=== PATIENT | male | born 1955 | race Caucasian/White ===

== ENCOUNTER 2019-07-23 15:09 | Emergency (ER) | payer BC, OTHER ==
[~2019-07-23] VITALS: Ht 182.9 cm; Wt 97.5 kg
[2019-07-23 15:50] LABS: ABSOLUTE NEUTROPHILS 9.5 thou/uL (1.4-8.2); BASOPHILS 1.3 % (0.0-2.0); EOSINOPHILS 0.2 % (0.0-3.0); HEMATOCRIT 51.5 % (42.0-52.0); HEMOGLOBIN 17.4 gm/dL (14.0-18.0); MCH 31.6 pg (26.0-34.0); MCHC 33.9 g/dL (28.0-37.0); MCV 93.4 fL (80.0-100.0); MONOCYTES 3.9 % (1.0-8.0); PLATELET COUNT 267 thou/uL (150-400); POLYS 81.6 % (36.0-66.0); RBC 5.51 mil/uL (4.50-6.00); RDW 13.4 % (10.5-14.5); WBC 11.7 thou/uL (4.0-11.0)
[2019-07-23 15:56] LABS: CALCIUM 9.5 mg/dL (8.5-10.1); POTASSIUM 4.4 mmol/L (3.5-5.1)
[2019-07-23 16:02] LABS: ALBUMIN 4.2 g/dL (3.4-5.0); TOTAL BILIRUBIN 0.7 mg/dL (<0.1-1.0); TOTAL PROTEIN 8.6 g/dL (6.4-8.2)
--- NOTE | 2019-07-23 16:27 | EKG ---
[place] [address] [employer] [place] [address] ELECTROCARDIOGRAM REPORT Name: PARTHA SANTOS Room #: REG RONIT Mariee#: [id number] Admission: 07/23/19 Attend Phys: Discharge: Date of : 59 Report #: [id number] THIS REPORT FOR: //name// [facility] ED Test Date: 2019-07-23 Test Time: 15:51:48 Pat Name: PARTHA SANTOS Department: Room: Gender: Repossession Agent: [place] : 1955 Requested By: Arcenio Day Order Number: [id number] MD: Dewayne Bowie Measurements Intervals [place] Rate: 78 P: 54 VA: 193 QRS: -27 QRSD: 89 T: 61 QT: 400 QTc: 456 Interpretive Statements Sinus rhythm Inferior infarct, old Probable anterolateral infarct, age indeterm No previous ECG available for comparison Electronically Signed On 07-23-2019 16:26:17 BRANCH ACCOUNT EXECUTIVE by Dewayne Bowie [email or web address] <ELECTRONICALLY SIGNED> By: Dewayne Bowie MD, [facility] 07/23/19 1626 1551 1551 Dewayne Bowie MD, FACC /EPI
[2019-07-23] MEDS ORDERED: NORCO 5-325 TA1 EAC1 PO (16:50)
[2019-07-23 17:22] VITALS: BP 123/87
== END 2019-07-23 17:22 | disposition home or self-care (01) ==
LOC: ER 15:09
PROVIDERS: Emergency Medicine
DX: S76.112A Strain of left quadriceps muscle, fascia and tendon, initial encounter (principal); W00.0XXA Fall on same level due to ice and snow, initial encounter; Y92.89 Other specified places as the place of occurrence of the external cause; Y93.89 Activity, other specified; Y99.8 Other external cause status

== ENCOUNTER 2020-02-26 11:41 | Inpatient (IN) | payer BC, OTHER ==
[~2020-02-26] VITALS: Ht 182.9 cm; Wt 117.9 kg
[~2020-02-26 11:41] MED LIST: NORCO 5-325 TA1 EAC1 PO
[2020-02-26 11:45] VITALS: BP 164/94
[2020-02-26 12:32] LABS: CREATININE 1.1 mg/dL (0.7-1.3); POTASSIUM 4.2 mmol/L (3.5-5.1)
[2020-02-26 12:36] LABS: ABSOLUTE NEUTROPHILS 6.1 thou/uL (1.4-8.2); BASOPHILS 1.3 % (0.0-2.0); EOSINOPHILS 1.9 % (0.0-3.0); HEMATOCRIT 49.9 % (42.0-52.0); HEMOGLOBIN 17.2 gm/dL (14.0-18.0); LYMPHOCYTES 20.7 % (24.0-44.0); MCH 32.4 pg (26.0-34.0); MCHC 34.5 g/dL (28.0-37.0); MCV 93.9 fL (80.0-100.0); PLATELET COUNT 201 thou/uL (150-400); POLYS 70.1 % (36.0-66.0); RBC 5.31 mil/uL (4.50-6.00); RDW 13.3 % (10.5-14.5); WBC 8.7 thou/uL (4.0-11.0)
[2020-02-26 12:38] LABS: ALBUMIN 3.7 g/dL (3.4-5.0); TOTAL BILIRUBIN 0.7 mg/dL (0.2-1.0); TOTAL PROTEIN 7.8 g/dL (6.4-8.2)
[2020-02-26 14:56] LABS: HEMATOCRIT 48.1 % (42.0-52.0); HEMOGLOBIN 16.6 gm/dL (14.0-18.0); MCH 32.3 pg (26.0-34.0); MCHC 34.4 g/dL (28.0-37.0); MCV 93.9 fL (80.0-100.0); RBC 5.13 mil/uL (4.50-6.00); RDW 13.5 % (10.5-14.5); WBC 9.1 thou/uL (4.0-11.0)
[2020-02-26 15:10] LABS: PROTIME 10.5 Seconds (9.3-11.4)
[2020-02-26 16:17] VITALS: BP 155/85
[2020-02-26 16:47] VITALS: BP 154/76
[2020-02-26 17:15] VITALS: BP 158/99
[2020-02-26 20:20] VITALS: BP 132/71
[2020-02-27 00:13] VITALS: BP 139/77
[2020-02-27 03:40] VITALS: BP 151/81
[2020-02-27 09:00] VITALS: BP 141/91
[2020-02-27 11:50] VITALS: BP 143/80
[2020-02-27 16:20] VITALS: BP 136/83
[2020-02-27 19:18] VITALS: BP 143/83
[2020-02-28] VITALS (15 sets, daily range): BP systolic 133–161; BP diastolic 68–94
[2020-02-28 05:55] LABS: HEMATOCRIT 45.6 % (42.0-52.0); HEMOGLOBIN 15.5 gm/dL (14.0-18.0); MCH 32.2 pg (26.0-34.0); MCV 94.7 fL (80.0-100.0); RBC 4.81 mil/uL (4.50-6.00); RDW 13.5 % (10.5-14.5); WBC 6.3 thou/uL (4.0-11.0)
[2020-02-29] VITALS: BP 146/76
[2020-02-29 04:15] VITALS: BP 160/89
[2020-02-29 05:26] LABS: HEMATOCRIT 47.5 % (42.0-52.0); HEMOGLOBIN 15.9 gm/dL (14.0-18.0); MCH 31.9 pg (26.0-34.0); MCHC 33.6 g/dL (28.0-37.0); RDW 13.4 % (10.5-14.5); WBC 5.7 thou/uL (4.0-11.0)
[2020-02-29 07:15] VITALS: BP 146/86
[2020-02-29] MEDS ORDERED: ELIQUIS5 M1 PO (08:17)
[2020-02-29 10:49] VITALS: BP 146/86
[2020-02-29] MEDS ORDERED: ELIQUIS5 MG PO (10:52)
== END 2020-02-29 13:45 | disposition home or self-care (01) | DRG 252 ==
LOC: ER 11:41 → 2N 14:32 → EROBS 14:32 → 2N 17:25
PROVIDERS: Physician Assistant; ADMIT Hospitalist; ATTEND Hospitalist
PROC: 06H03DZ Insertion of Intraluminal Device into Inferior Vena Cava, Percutaneous Approach (ICD-10-PCS; principal; 2020-02-28)
DX: I82.411 Acute embolism and thrombosis of right femoral vein (principal); I26.99 Other pulmonary embolism without acute cor pulmonale; I82.421 Acute embolism and thrombosis of right iliac vein; F17.210 Nicotine dependence, cigarettes, uncomplicated; G43.001 Migraine without aura, not intractable, with status migrainosus; Z79.899 Other long term (current) drug therapy
CPT/HCPCS: 10081

== ENCOUNTER → 2020-03-28 | Outpatient (CLI) | payer BC, OTHER ==
[~2020-03-28] MED LIST changes: +ELIQUIS5 M1 PO; +ELIQUIS5 MG PO
== END ==
LOC: ULTRA 15:03
PROVIDERS: ATTEND Nurse Practitioner
DX: I82.401 Acute embolism and thrombosis of unspecified deep veins of right lower extremity (principal)

== ENCOUNTER → 2020-07-28 | Outpatient (CLI) | payer BC, OTHER ==
[~2020-07-28] MED LIST changes: +COZAAR 25 MG TA25 M1 PO; +CRESTOR20 MG PO; +NICOTINE TRANSD14 M1 TRANSDERM; +TRELEGY ELLIPT1 EACH INH
== END ==
LOC: SJCVCIMAG 12:48
PROVIDERS: ATTEND Internal Medicine Cardiovascular Disease
DX: I65.23 Occlusion and stenosis of bilateral carotid arteries (principal); I70.203 Unspecified atherosclerosis of native arteries of extremities, bilateral legs; I82.411 Acute embolism and thrombosis of right femoral vein; F17.200 Nicotine dependence, unspecified, uncomplicated

== ENCOUNTER → 2020-08-02 | Outpatient (CLI) | payer BC, OTHER ==
[~2020-08-02] MED LIST changes: -COZAAR 25 MG TA25 M1 PO; -CRESTOR20 MG PO; -NICOTINE TRANSD14 M1 TRANSDERM; -TRELEGY ELLIPT1 EACH INH
== END ==
LOC: SJCVCIMAG 08:48
PROVIDERS: ATTEND Internal Medicine Cardiovascular Disease
DX: I26.99 Other pulmonary embolism without acute cor pulmonale (principal); R94.31 Abnormal electrocardiogram [ECG] [EKG]; R06.02 Shortness of breath

== ENCOUNTER → 2020-08-07 | Outpatient (CLI) | payer BC, OTHER ==
[~2020-08-07] VITALS: Ht 182.9 cm; Wt 119.3 kg
[~2020-08-07] MED LIST changes: +COZAAR 25 MG TA25 M1 PO; +CRESTOR20 MG PO; +METFORMIN HCL500 M3 PO; +NICOTINE TRANSD14 M1 TRANSDERM; +PLAVIX 75 MG TA75 MG PO; +PROTONIX40 M4 PO; +TRELEGY ELLIPT1 EACH INH
[2020-08-07 07:22] VITALS: BP 149/85
[2020-08-07 15:03] LABS: HEMATOCRIT 48.1 % (42.0-52.0); HEMOGLOBIN 16.5 gm/dL (14.0-18.0)
--- NOTE | 2020-08-08 13:32 | CATHLAB ---
[facility] [place] [address] [address] [place] [address] INVASIVE PROCEDURE REPORT Name: PARTHA SANTOS Room #: REG SUSI MCarltonIsma.#: [id number] Admission: 08/07/20 Attend Phys: Adonis Maharaj MD Discharge: Date of : 59 Report #: [id number] THIS REPORT FOR: cc: Roly Dooley Andrea RNP Mancuso, Gerald M. MD [facility] ~ APPROVED REPORT Study performed: 08/07/2020 10:34:17 Patient Details Patient Status: Out-Patient Room #: The patient is a 65 year-old male Event Personnel Scooter Powers Beater Out Leveling Machine, Megan Wilkesron RN RN, Robert Fiore RTR Scrub, Orlando Abraham RTR Monitor, Ashley Castle Telecommunications Specialist Procedures Performed Left Heart Cath w/or w/o Coronaries 1477129 [facility] 15717 Initial Mod Sed Same Phys/QHP Gr5y 963708 30943 Mod Sed Same Phys/QHP Ea 709706 Hemostasis w/ Mynx Indication Chest pain Procedure Narrative The was infiltrated with 1% Lidocaine subcutaneous anesthesia. A SHEATH BRITE-TIP 6F X 11CM ([id number]) sheath was inserted into the RFA 5 FR^. Coronary angiography was performed using coronary diagnostic catheters. The right coronary system was accessed and visualized with a JR4 catheter. The left coronary system was accessed and visualized with a JL4 catheter. The left ventricle was accessed and visualized with a PIGTAIL catheter. Left ventricular/Aortic Valve gradient assessed via catheter pullback. Left ventriculogram was performed in 30 degree projection. Closure device was deployed with a 6 Fr MYNXGRIP 6/7F #[id number]. The patient tolerated the procedure well and there were no complications associated with the procedure. There was no hematoma. Intraoperative Conscious Sedation Sedation start time: 836 Case end Time: 1143 Fentanyl 350 mcg Versed 6.5 mg [facility] [place] [address] [place] [address] INVASIVE PROCEDURE REPORT Name: PARTHA SANTOS Room #: REG Jaylene#: [id number] Admission: 08/07/20 Attend Phys: Adonis Maharaj, Discharge: Date of : 59 Report #: [id number] SEDATION TIME/AMOUNTS, FLUORO DOSE AND CONTRAST AMOUNTS(OMNI AND VISI) ARE ALL TOTALS FROM A COMBO CASE WITH DR MAHARAJ Fluoro Time: 23.63 minutes Dose: DAP 85521.60 cGycm2 2229 mGy Contrast Type and Amount: Omnipaque 252 ml Hemodynamics The aortic pressure is 154/71 mmHg with a mean of 68 mmHg. The left ventricular pressure is 149/9 mmHg with a mean of mmHg. The left ventricular end diastolic pressure is 23 mmHg. PCI Technique Lesion Percutaneous coronary intervention was performed on the Superficial Femoral. Conclusion #1. Left main with mild ostial disease giving rise to LAD and circumflex. #2 the LAD is moderately attenuated throughout the proximal and mid vessel. Then giving rise to a small diffusely diseased vessel that extends around the apex. Would treat this medically. #3 circumflex OM nondominant with mild disease. #4 dominant right coronary with mild irregularity. #5 normal left jugular size with subtle anterior apical hypokinesis. Recommendations and plan: Continue aggressive risk factor modification no indication for coronary intervention. <ELECTRONICALLY SIGNED> By: Scooter Powers MD, [facility] 08/08/20 133 30 30 Scooter Powers MD, FACC /INF
== END | disposition home or self-care (01) ==
LOC: CATH 06:33
PROVIDERS: Internal Medicine Cardiovascular Disease; ATTEND Nuclear Medicine Nuclear Cardiology
DX: R07.9 Chest pain, unspecified (principal); I25.10 Atherosclerotic heart disease of native coronary artery without angina pectoris; E11.51 Type 2 diabetes mellitus with diabetic peripheral angiopathy without gangrene; I70.212 Atherosclerosis of native arteries of extremities with intermittent claudication, left leg; I70.222 Atherosclerosis of native arteries of extremities with rest pain, left leg; I77.9 Disorder of arteries and arterioles, unspecified; I10 Essential (primary) hypertension; I48.91 Unspecified atrial fibrillation; J44.9 Chronic obstructive pulmonary disease, unspecified; F17.200 Nicotine dependence, unspecified, uncomplicated; I25.2 Old myocardial infarction; R94.31 Abnormal electrocardiogram [ECG] [EKG]; E78.00 Pure hypercholesterolemia, unspecified; D68.59 Other primary thrombophilia; E66.9 Obesity, unspecified; Z98.890 Other specified postprocedural states; Z79.899 Other long term (current) drug therapy; Z95.828 Presence of other vascular implants and grafts; Z96.659 Presence of unspecified artificial knee joint; Z79.01 Long term (current) use of anticoagulants

== ENCOUNTER → 2020-08-09 | Outpatient (CLI) | payer BC, OTHER ==
[~2020-08-09] VITALS: Ht 182.9 cm; Wt 119.3 kg
[2020-08-09 07:03] VITALS: BP 148/69
[2020-08-09 07:36] LABS: HEMATOCRIT 46.2 % (42.0-52.0); HEMOGLOBIN 15.5 gm/dL (14.0-18.0); MCH 31.9 pg (26.0-34.0); MCHC 33.6 g/dL (28.0-37.0); RBC 4.86 mil/uL (4.50-6.00); RDW 12.8 % (10.5-14.5)
[2020-08-09 07:57] LABS: CALCIUM 8.9 mg/dL (8.5-10.1); CREATININE 1.1 mg/dL (0.7-1.3); POTASSIUM 3.7 mmol/L (3.5-5.1)
== END | disposition home or self-care (01) ==
LOC: CATH 06:24
PROVIDERS: ATTEND Nuclear Medicine Nuclear Cardiology
DX: I70.211 Atherosclerosis of native arteries of extremities with intermittent claudication, right leg (principal); M79.604 Pain in right leg; I10 Essential (primary) hypertension; E11.9 Type 2 diabetes mellitus without complications; I25.2 Old myocardial infarction; E78.00 Pure hypercholesterolemia, unspecified; I48.91 Unspecified atrial fibrillation; J44.9 Chronic obstructive pulmonary disease, unspecified; F17.210 Nicotine dependence, cigarettes, uncomplicated; Z98.890 Other specified postprocedural states; Z79.899 Other long term (current) drug therapy; Z79.01 Long term (current) use of anticoagulants; Z86.718 Personal history of other venous thrombosis and embolism; Z86.711 Personal history of pulmonary embolism; Z96.659 Presence of unspecified artificial knee joint; Z79.891 Long term (current) use of opiate analgesic

== ENCOUNTER → 2020-11-01 | Outpatient (CLI) | payer BC, OTHER | LOC: SJCVCIMAG 10:29 | PROVIDERS: ATTEND Nuclear Medicine Nuclear Cardiology | DX: I82.411 Acute embolism and thrombosis of right femoral vein (principal); I73.9 Peripheral vascular disease, unspecified; M79.605 Pain in left leg; M79.89 Other specified soft tissue disorders; F17.200 Nicotine dependence, unspecified, uncomplicated; Z95.828 Presence of other vascular implants and grafts ==

== ENCOUNTER → 2021-05-09 | Outpatient (CLI) | payer BC, OTHER | LOC: SJCVCIMAG 12:57 | PROVIDERS: ATTEND Nuclear Medicine Nuclear Cardiology | DX: I65.23 Occlusion and stenosis of bilateral carotid arteries (principal); I82.411 Acute embolism and thrombosis of right femoral vein; I25.10 Atherosclerotic heart disease of native coronary artery without angina pectoris; I42.9 Cardiomyopathy, unspecified; I10 Essential (primary) hypertension; I26.99 Other pulmonary embolism without acute cor pulmonale; E78.00 Pure hypercholesterolemia, unspecified; J44.9 Chronic obstructive pulmonary disease, unspecified; I73.9 Peripheral vascular disease, unspecified; I77.9 Disorder of arteries and arterioles, unspecified; I82.409 Acute embolism and thrombosis of unspecified deep veins of unspecified lower extremity; E78.5 Hyperlipidemia, unspecified; R06.00 Dyspnea, unspecified; F17.200 Nicotine dependence, unspecified, uncomplicated; Z79.84 Long term (current) use of oral hypoglycemic drugs; Z79.899 Other long term (current) drug therapy; Z72.89 Other problems related to lifestyle ==

== ENCOUNTER → 2021-05-21 | Outpatient (CLI) | payer BC, OTHER ==
[~2021-05-21] VITALS: Ht 182.9 cm; Wt 119.0 kg
[~2021-05-21] MED LIST changes: +CARVEDILOL12.5 MG PO; +GLIMEPIRIDE1 MG PO; +LOSARTAN POTAS100 MG PO
[2021-05-21 07:36] VITALS: BP 138/77
[2021-05-21 08:01] LABS: HEMATOCRIT 51.3 % (42.0-52.0); HEMOGLOBIN 17.3 gm/dL (14.0-18.0); MCH 31.8 pg (26.0-34.0); MCHC 33.7 g/dL (28.0-37.0); MCV 94.2 fL (80.0-100.0); RBC 5.44 mil/uL (4.50-6.00); RDW 13.3 % (10.5-14.5); WBC 8.4 thou/uL (4.0-11.0)
[2021-05-21 08:04] LABS: CALCIUM 9.1 mg/dL (8.5-10.1); POTASSIUM 4.3 mmol/L (3.5-5.1)
== END | disposition home or self-care (01) ==
LOC: CATH 06:47
PROVIDERS: ATTEND Nuclear Medicine Nuclear Cardiology
DX: I87.1 Compression of vein (principal); I87.323 Chronic venous hypertension (idiopathic) with inflammation of bilateral lower extremity; I10 Essential (primary) hypertension; E11.9 Type 2 diabetes mellitus without complications; E78.00 Pure hypercholesterolemia, unspecified; J44.9 Chronic obstructive pulmonary disease, unspecified; K21.9 Gastro-esophageal reflux disease without esophagitis; I25.2 Old myocardial infarction; I73.9 Peripheral vascular disease, unspecified; E66.9 Obesity, unspecified; F17.210 Nicotine dependence, cigarettes, uncomplicated; Z98.890 Other specified postprocedural states; Z79.899 Other long term (current) drug therapy

== ENCOUNTER → 2021-06-11 | Outpatient (CLI) | payer BC, OTHER | LOC: SJCVCIMAG 12:12 | PROVIDERS: ATTEND Internal Medicine Cardiovascular Disease | DX: I25.10 Atherosclerotic heart disease of native coronary artery without angina pectoris (principal); R06.00 Dyspnea, unspecified; I73.9 Peripheral vascular disease, unspecified; I10 Essential (primary) hypertension; E78.5 Hyperlipidemia, unspecified; I42.9 Cardiomyopathy, unspecified; J44.9 Chronic obstructive pulmonary disease, unspecified; I77.9 Disorder of arteries and arterioles, unspecified; I26.99 Other pulmonary embolism without acute cor pulmonale; E78.00 Pure hypercholesterolemia, unspecified; F17.200 Nicotine dependence, unspecified, uncomplicated; Z79.899 Other long term (current) drug therapy ==